=== PATIENT | male | born 1955 | race African-American/Black ===

== ENCOUNTER → 2017-03-26 | Outpatient (CLI) | payer OTHER ==
[2015-05-13 11:23] VITALS: BP 111/63
--- NOTE | 2017-03-27 06:27 | MRI ---
HISTORY: Cervical spondylosis, neck pain, paresthesias Study: MRI cervical spine without contrast Comparison: None Technique: Multiplanar multisequence MRI of the cervical spine was obtained utilizing standard depar tmeal protocol. Findings: The patient is status post C5, 6 , 7 anterior interbody fusion with hardware present . Fusion appear s complete. Alignment of the cervical spine is maintained. No abnormal signal characteristics of th e bone marrow can be identified. No evidence for fracture or significant bone or edema can be seen. The surrounding soft tissues are unremarkable. The cervical spinal cord is normal in size and con figuration and without foci of abnormal signal. C2 -- C3: No evidence for compressive disc disease. The neural foramina are patent. C3 -- C4: Broad-based disk osteophyte formation effaces the thecal sac but does not contribute to si gnificant canal stenosis or cord compression. The neural foramina are patent. C4 -- C5: Broad-based disc protrusion effaces the thecal sac and contributes to moderate canal steno sis but no significant cord compression. There is spondylitic foraminal narrowing on the right. The left neural foramen is patent. C5 -- C6: Status post fusion. The neural foramina are patent. C6 -- C7: Status post fusion. The neural foramina are patent. C7 -- T1: Status post fusion. The neural foramina are patent. T1-2: Broad-based disk bulging effaces the thecal sac and contributes to mild canal stenosis. The ne ural foramina are patent. IMPRESSION: As above Reported By:
--- NOTE | 2017-03-27 06:37 | MRI ---
HISTORY: Low back pain, radiculopathy Study: MRI lumbar spine with and without contrast Comparison: None Technique: Multiplanar multi-sequence pre and post MRI of the lumbar spine was obtained. Sagittal T 1, sagittal T2, and stir weighted images, axial T1, and axial T2 images were obtained. Axial and sag ittal post-contrast images were obtained. Findings: The patient is status post L4, 5, S1 posterior fusion with hardware present. The hardware creates so me artifact decreasing resolution. The lumbar spine demonstrates normal alignment with the expected signal characteristics of the bone marrow. No bone marrow enhancement or other enhancing areas are i dentified. The conus of the cord terminates normally. T12 -- L1: No evidence for compressive disc disease. The neural foramina are patent. Bilateral facet arthropathy is present. L1 -- L2: No evidence for compressive disc disease. The neural foramina are patent. Bilateral facet arthropathy is present. L2 -- L3: Circumferential disk bulging effaces the thecal sac and contributes along with bilateral f acet arthropathy mild lateral recess narrowing bilaterally. L3 -- L4: Broad-based disc protrusion extends slightly more to the left than the right and contribut es along with ligamentous hypertrophy, facet arthropathy, and pedicular shortening to a significant spinal stenosis with lateral recess and foraminal narrowing of a significant degree bilaterally. L4 -- L5: Status post fusion the neural foramina are patent. L5 -- S1: Status post fusion the neural foramina are patent. IMPRESSION: As above Reported By:
== END | disposition home or self-care (01) | DRG 552 ==
LOC: RAD 14:55
PROVIDERS: ATTEND Nurse Practitioner Family
DX: M54.5 Low back pain (principal); M47.812 Spondylosis without myelopathy or radiculopathy, cervical region; Z98.1 Arthrodesis status
CPT/HCPCS: 72141; 72149

== ENCOUNTER → 2017-07-24 | Outpatient (CLI) | payer OTHER ==
[2015-05-13 11:23] VITALS: BP 111/63
[2017-07-24 08:38] LABS: HEMOGLOBIN A1C 6.9 % (4.5-6.2)
[2017-07-24 08:58] LABS: ALANINE AMINOTRANSFERASE 31 Units/L (12-78); ALBUMIN 4.1 g/dL (3.4-5.0); ALKALINE PHOSPHATASE 78 Units/L (46-116); ASPARTATE AMINO TRANSFERASE 27 Units/L (15-37); BLOOD UREA NITROGEN 9 mg/dL (7-18); CALCIUM 9.1 mg/dL (8.5-10.1); CHLORIDE 103 mmol/L (98-107); COR NA(FOR HYPERGLY) 141 mmol/L (136-145); CREATININE 1.12 mg/dL (0.70-1.30); SODIUM 140 mmol/L (136-145); TOTAL PROTEIN 8.1 g/dL (6.4-8.2); eGFR BLACK RACES > 60 (>60); eGFR NON BLACK RACES > 60 (>60)
== END ==
LOC: LAB 08:02
PROVIDERS: ATTEND Nurse Practitioner Family
DX: E11.65 Type 2 diabetes mellitus with hyperglycemia (principal)
CPT/HCPCS: 36415; 80053; 83036; 84146

== ENCOUNTER 2017-10-06 13:57 | Emergency (ER) | payer OTHER ==
[2017-10-06 14:03] VITALS: BP 125/69; BMI 33.7
[2017-10-06] MEDS ORDERED: ZOFRAN TAB 4 MG PO STA (14:23)
[2017-10-06 14:38] LABS: BASOPHILS # (AUTO) 0.1 X10^3/uL (0.0-0.1); EOSINOPHILS % (AUTO) 0.1 % (0.9-2.9); HEMATOCRIT 40.2 % (42.0-54.0); HEMOGLOBIN 14.1 g/dL (13.5-18.0); LYMPHOCYTES # (AUTO) 3.1 X10^3/uL (1.3-2.9); LYMPHOCYTES % (AUTO) 27.4 % (21.0-51.0); MEAN CORPUSCULAR HEMOGLOBIN 28.8 pg (27.0-34.0); MEAN CORPUSCULAR VOLUME 82.2 fL (80.0-100.0); MEAN PLATELET VOLUME 7.1 fL (7.4-11.0); MONOCYTES # (AUTO) 0.4 x10^3/uL (0.3-0.8); MONOCYTES % (AUTO) 3.6 % (0.0-13.0); NEUTROPHILS # (AUTO) 7.6 x10^3/uL (2.2-4.8); NEUTROPHILS % (AUTO) 67.9 % (42.0-75.0); PLATELET COUNT 307 X10^3/uL (150.0-450.0); RED BLOOD COUNT 4.89 X10^6/uL (4.7-6.0); RED CELL DISTRIBUTION WIDTH 13.1 % (11.6-16.5); WHITE BLOOD COUNT 11.3 X10^3/uL (3.6-10.0)
[2017-10-06] MEDS ORDERED: ZOFRAN TAB 4 MG ONE (14:46)
[2017-10-06 14:53] LABS: ALANINE AMINOTRANSFERASE 23 Units/L (12-78); ALBUMIN 3.9 g/dL (3.4-5.0); ALKALINE PHOSPHATASE 94 Units/L (46-116); AMYLASE 131 Units/L (25-115); ASPARTATE AMINO TRANSFERASE 20 Units/L (15-37); BLOOD UREA NITROGEN 18 mg/dL (7-18); CALCIUM 8.6 mg/dL (8.5-10.1); CARBON DIOXIDE 26.8 mmol/L (21-32); CHLORIDE 103 mmol/L (98-107); LIPASE 213 Units/L (73-393); SODIUM 140 mmol/L (136-145); TOTAL PROTEIN 8.5 g/dL (6.4-8.2); eGFR BLACK RACES > 60 (>60); eGFR NON BLACK RACES > 60 (>60)
--- NOTE | 2017-10-06 15:05 | DR.GENAD ---
HPI - PCP Primary Care Physician: ernie - Complaint/Symptoms Chief Complaint Doctors Comments: multiple complaints including cough, cold, congestion with YING. [place] x 1, mild diarrhea since 4 days, got shot of steroids in clinic last Friday. Chief Complaint:: pt stated he has been vomiting yesterday and he has been congested since yesterday along with a headache. - Source History Provided: Patient - Mode of Arrival Mode of Arrival: Ambulatory - Timing Onset of Chief Complaint: 10/05/17 PMH - PMH Past Medical History: Yes Past Medical History: Diabetes Past Surgical History: Yes Surgical History: Ortho Surgery - Family History History of Family Medical Conditions: Yes Family Medical History: Diabetes Mellitus, Cancer, [place], Hypertension - Social History Does patient currently use any type of tobacco product: No Have you used tobacco products in the last 12 months: No Type of Tobacco Use: None Does any household member use tobacco: No Alcohol Use: None Do you use any recreational Drugs:: No Lives Where: Home - infectious screening In the last 2 months have you had wt loss of >10#?: NO Have you had fever, night sweats or hemotysis?: No Have you traveled outside the country in the last 6 months?: No Isolation: Standard ROS - Review of Systems Eyes: No Symptoms Reported ENTM: Nose Congestion Respiratoy: Non-Productive Cough Cardiovascular: No Symptoms Reported Gastrointestinal/Abdominal: Diarrhea, Nausea, Vomiting Neurological: Headache Musculoskeletal: Joint Pain, Muscle Pain Integumentary: No Symptoms Reported Hematologic/Lymphatic: No Symptoms Reported Endocrine: No Symptoms Reported Psychiatric: No Symptoms Reported All Other Systems: Reviewed and Negative PE - Vital Signs Vitals: Temperature 98.6 F Pulse Rate 84 Respiratory Rate 18 Blood Pressure 125/69 O2 Sat by Pulse Oximetry 98 - General General Appearance: Alert, In No Apparent Distress - Head Head Exam: Normal Inspection, Normocephalic - Eyes Eye exam: Normal Appearance - ENT ENT Exam: Normal Exam - Neck Neck Exam: Normal Inspection, Trachea Midline. negative: Lymphadenopathy - Chest Chest Inspection: Normal Inspection - Respiratory Respiratory Exam: Normal Lung Sounds Bilat Respiratory Exam: Bilateral Clear to Auscultation - Cardiovascular Cardiovascular Exam: Regular Rate, Normal Rhythm - Abdominal Exam Abdominal Exam: Normal Inspection, Normal Bowel Sounds, Soft. negative: Distention, Tenderness, Guarding, Rebound - Extremities Extremities Exam: Normal Inspection, Full ROM - Neurologic Neurological Exam: Alert, Oriented X3 - Psychiatric Psychiatric Exam: Normal Affect, Normal Mood - Skin Skin Exam: Warm, Dry ROR - Labs Reviewed Laboratory Results Reviewed?: Yes Result Diagrams: 10/06/17 14:31 10/06/17 14:31 Laboratory: WBC 11.3 X10^3/uL (3.6-10.0) H 10/06/17 14:31 RBC 4.89 X10^6/uL (4.7-6.0) 10/06/17 14:31 Hgb 14.1 g/dL (13.5-18.0) 10/06/17 14:31 Hct 40.2 % (42.0-54.0) L 10/06/17 14: MCV 82.2 fL (80.0-100.0) 10/06/17 14:31 MCH 28.8 pg (27.0-34.0) 10/06/17 14: MCHC 35.0 g/dL (33.0-35.0) 10/06/17 14: RDW 13.1 % (11.6-16.5) 10/06/17 14:31 Plt Count 307 X10^3/uL (150.0-450.0) 10/06/17 14: MPV 7.1 fL (7.4-11.0) L 10/06/17 14:31 Neut % 67.9 % (42.0-75.0) 10/06/17 14: Lymph % 27.4 % (21.0-51.0) 10/06/17 14: [place] % 3.6 % (0.0-13.0) 10/06/17 14:31 Eos % 0.1 % (0.9-2.9) L 10/06/17 14:31 Baso % 1.0 % (0.2-1.0) 10/06/17 14:31 Neut # 7.6 x10^3/uL (2.2-4.8) H 10/06/17 14:31 Lymph # 3.1 X10^3/uL (1.3-2.9) H 10/06/17 14:31 [place] # 0.4 x10^3/uL (0.3-0.8) 10/06/17 14:31 Eos # 0.0 x10^3/uL (0.0-0.2) 10/06/17 14:31 Baso # 0.1 X10^3/uL (0.0-0.1) 10/06/17 14:31 Absolute Nucleated RBC 0.0 /100WBC 10/06/17 14:31 Sodium 140 mmol/L (136-145) 10/06/17 14:31 Corrected Sodium TNP 10/06/17 14:31 Potassium 3.5 mmol/L (3.5-5.1) 10/06/17 14:31 Chloride 103 mmol/L (98-107) 10/06/17 14:31 Carbon Dioxide 26.8 mmol/L (21-32) 10/06/17 14:31 BUN 18 mg/dL (7-18) 10/06/17 14:31 Creatinine 1.10 mg/dL (0.70-1.30) 10/06/17 14:31 Est GFR (MDRD) Af Amer > 60 (>60) 10/06/17 14:31 Est GFR (MDRD) Non-Af > 60 (>60) 10/06/17 14:31 Glucose 98 mg/dL (65-99) 10/06/17 14:31 Calcium 8.6 mg/dL (8.5-10.1) 10/06/17 14:31 Corrected Calcium TNP 10/06/17 14:31 Total Bilirubin 0.30 mg/dL (0.2-1.0) 10/06/17 14:31 AST 20 Units/L (15-37) 10/06/17 14:31 ALT 23 Units/L (12-78) 10/06/17 14:31 Alkaline Phosphatase 94 Units/L (46-116) 10/06/17 14:31 Total Protein 8.5 g/dL (6.4-8.2) H 10/06/17 14:31 Albumin 3.9 g/dL (3.4-5.0) 10/06/17 14:31 Globulin 4.6 g/dL (2.5-4.5) H 10/06/17 14:31 Albumin/Globulin Ratio 0.8 Ratio (1.1-2.1) L 10/06/17 14:31 Amylase 131 Units/L (25-115) H 10/06/17 14:31 Lipase 213 Units/L (73-393) 10/06/17 14:31 Influenza Type A (PCR) Negative (NEGATIVE) 10/06/17 14:38 Influenza Type B (PCR) Negative (NEGATIVE) 10/06/17 14:38 - XRAY XRAY Interpreted by: Self XRAY Findings: nothing acute, no free air, no obstruction - Diagnosis Discharge Problem: Nausea and vomiting, Sinusitis, acute, Gastroenteritis - Discharge Plan Disposition: HOME, SELF-CARE Condition: Stable Prescriptions: Amoxicillin/Potassium Clav [Augmentin 875-125 Tablet] 1 tab PO Q12H #20 tab Ketorolac Tromethamine [Toradol Tab] 10 mg PO Q8H PRN #12 tab PRN Reason: Pain Ondansetron [Zofran ODT 8 mg] 8 mg PO Q8H PRN #12 tab PRN Reason: Nausea/Vomiting - Follow ups/Referrals Follow ups/Referrals: WENDIE SERRANO [Primary Care Provider] - 3 days - Instructions
--- NOTE | 2017-10-06 17:32 | RAD ---
HISTORY: Abdominal pain, nausea, vomiting Study: Acute abdominal series Comparison: Chest radiograph 07/10/2014 Findings: There is a 2.4 cm opacity in the left perihilar region, similar to prior study. The right lung is george ar. No effusion or pneumothorax identified. The cardiac and mediastinal contours are within normal li mits. Flat plate and upright evaluation of the abdomen demonstrates a normal bowel gas pattern. No gross fr ee intraperitoneal air. No pathological soft tissue mass or calcification can be observed. There are postsurgical changes of the lumbar spine post multilevel fusion and laminectomy. IMPRESSION: 1. 2.4 cm left perihilar opacity. Nonemergent CT of the chest with contrast is recommended for comple te characterization. The lesion appears similar to prior study from 2014 but is indeterminate in etio logy. 2. No evidence of acute abdominal pathology. Reported By:
== END 2017-10-06 17:38 | disposition home or self-care (01) ==
LOC: ER 14:06
DX: K52.89 Other specified noninfective gastroenteritis and colitis (principal); R11.2 Nausea with vomiting, unspecified; J01.80 Other acute sinusitis
CPT/HCPCS: 36415; 74022; 80053; 82150; 83690; 85025; 87502; 99282; 99283; S0181

== ENCOUNTER → 2017-12-13 | Outpatient (CLI) | payer OTHER ==
[2017-12-13 10:08] LABS: BASOPHILS # (AUTO) 0.1 X10^3/uL (0.0-0.1); BASOPHILS % (AUTO) 1.2 % (0.2-1.0); EOSINOPHILS # (AUTO) 0.3 x10^3/uL (0.0-0.2); EOSINOPHILS % (AUTO) 3.7 % (0.9-2.9); HEMATOCRIT 39.9 % (42.0-54.0); HEMOGLOBIN 13.6 g/dL (13.5-18.0); LYMPHOCYTES # (AUTO) 2.5 X10^3/uL (1.3-2.9); LYMPHOCYTES % (AUTO) 33.9 % (21.0-51.0); MEAN CORPUSCULAR HGB CONC 34.1 g/dL (33.0-35.0); MEAN CORPUSCULAR VOLUME 85.2 fL (80.0-100.0); MEAN PLATELET VOLUME 7.3 fL (7.4-11.0); MONOCYTES # (AUTO) 0.4 x10^3/uL (0.3-0.8); MONOCYTES % (AUTO) 5.1 % (0.0-13.0); NEUTROPHILS # (AUTO) 4.2 x10^3/uL (2.2-4.8); NEUTROPHILS % (AUTO) 56.1 % (42.0-75.0); PLATELET COUNT 296 X10^3/uL (150.0-450.0); RED BLOOD COUNT 4.69 X10^6/uL (4.7-6.0); RED CELL DISTRIBUTION WIDTH 14.2 % (11.6-16.5); WHITE BLOOD COUNT 7.4 X10^3/uL (3.6-10.0)
[2017-12-13 10:30] LABS: ALANINE AMINOTRANSFERASE 32 Units/L (12-78); ALBUMIN 4.1 g/dL (3.4-5.0); ALKALINE PHOSPHATASE 82 Units/L (46-116); ASPARTATE AMINO TRANSFERASE 23 Units/L (15-37); BLOOD UREA NITROGEN 7 mg/dL (7-18); CALCIUM 8.5 mg/dL (8.5-10.1); CHLORIDE 103 mmol/L (98-107); CHOL/HDL RATIO 3.5 (0.0-5.0); CHOLESTEROL 116 mg/dL (0-200); CREATININE 1.09 mg/dL (0.70-1.30); HDL CHOLESTEROL 33 mg/dL (40-60); SODIUM 142 mmol/L (136-145); TOTAL PROTEIN 8.6 g/dL (6.4-8.2); TRIGLYCERIDES 59 mg/dL (0-150); eGFR BLACK RACES > 60 (>60); eGFR NON BLACK RACES > 60 (>60)
[2017-12-13 19:20] LABS: TOTAL PSA 4.86 ng/mL (0.13-4.0)
== END ==
LOC: LAB 09:49
PROVIDERS: ATTEND Nurse Practitioner Family
DX: I10 Essential (primary) hypertension (principal); E78.4 Other hyperlipidemia; E11.9 Type 2 diabetes mellitus without complications; R35.0 Frequency of micturition; R97.20 Elevated prostate specific antigen [PSA]
CPT/HCPCS: 36415; 80053; 80061; 84153; 85025

== ENCOUNTER → 2017-12-14 | Outpatient (CLI) | payer OTHER ==
[2017-12-14 08:16] LABS: CREATININE,URINE 202.61 mg/dL (40-278); MICROALBUMIN,URINE 8.8 mg/L
== END ==
LOC: LAB 07:16
PROVIDERS: ATTEND Nurse Practitioner Family
DX: E11.9 Type 2 diabetes mellitus without complications (principal); I10 Essential (primary) hypertension
CPT/HCPCS: 82043